=== PATIENT | male | born 1930 | race Caucasian/White ===

== ENCOUNTER 2017-08-26 20:21 | Inpatient (IN) | payer MEDICARE, OTHER ==
[~2017-08-26] VITALS: Ht 172.7 cm; Wt 75.5 kg
[2017-08-26] MEDS ORDERED: ASPIRIN 325 MG TABLET ONE (20:27)
[2017-08-26] MEDS ORDERED: NITROGLYCERIN 1GM/1 INCH PACKET TD ONE (20:41)
[2017-08-26 20:43] LABS: BASOPHILS % (AUTO) 1.4 % (0.0-5.0); EOSINOPHILS % (AUTO) 10.1 % (0.0-8.0); HEMATOCRIT 40.2 % (42-54); LYMPHOCYTES % (AUTO) 29.6 % (21.0-51.0); MEAN CORPUSCULAR HEMOGLOBIN 38.3 pg (27.0-33.0); MEAN CORPUSCULAR HGB CONC 35.4 g/dL (32.0-36.0); MEAN CORPUSCULAR VOLUME 108.1 fL (79-99); MONOCYTES % (AUTO) 8.7 % (3.0-13.0); NEUTROPHILS % (AUTO) 50.2 % (40.0-77.0); NUCLEATED RED BLOOD CELLS 0.1 % (0.0-0.19); PLATELET COUNT (AUTO) 189 K/uL (130-400); RED BLOOD CELL COUNT(AUTO) 3.72 MIL/uL (4.50-6.20); RED CELL DISTRIBUTION WIDTH 14.3 % (11.0-15.5); WHITE BLOOD COUNT (AUTO) 8.1 K/uL (4.8-10.8)
[2017-08-26 20:56] LABS: CREATININE 1.8 mg/dL (0.5-1.5); POTASSIUM 3.7 mmol/L (3.5-5.1)
[2017-08-26 20:59] LABS: INR 0.94 (0.85-1.15); PARTIAL THROMBOPLASTIN TIME 25.3 SEC (26.3-35.5); PROTHROMBIN TIME 9.9 SEC (9.6-11.6)
[2017-08-26 21:10] LABS: ALBUMIN 3.6 g/dL (3.5-5.0); BILIRUBIN,TOTAL 0.5 mg/dL (0.2-1.0); CREATINE KINASE MB 0.9 ng/mL (0.5-3.6); TOTAL PROTEIN, SERUM 7.9 g/dL (6.0-8.3)
[2017-08-26 21:35] LABS: B-TYPE NATRIURETIC PEPTIDE 30 pg/mL (0-100)
[2017-08-26] MEDS ORDERED: ACETAMINOPHEN 325 MG TAB PO PRN (23:30)
[2017-08-27 00:45] LABS: CREATINE KINASE MB 0.6 ng/mL (0.5-3.6); CREATINE KINASE, TOTAL 50 U/L (21-232); MYOGLOBIN 84 ng/mL (10-92); TROPONIN I < 0.04 ng/mL (0.00-0.06)
[2017-08-27 01:02] VITALS: BP 158/91
[2017-08-27] MEDS ORDERED: CILO50TA PO (05:33)
[2017-08-27] MEDS ORDERED: METO50 PO (05:33)
[2017-08-27] MEDS ORDERED: ASPI-1005 PO (05:33)
[2017-08-27] MEDS ORDERED: HYDR-2534 PO (05:33)
[2017-08-27] MEDS ORDERED: MECL12.585 PO (05:33)
[2017-08-27] MEDS ORDERED: ALLO300T2 PO (05:33)
[2017-08-27] MEDS ORDERED: ATOR10 PO (05:33)
[2017-08-27] MEDS ORDERED: LOSA50TA37 PO (05:33)
[2017-08-27] MEDS ORDERED: HYDR-4060 PO (05:33)
[2017-08-27] MEDS ORDERED: HYDROCODONE/ACETAMINOPHEN 5/325 MG TAB PO PRN (06:00)
[2017-08-27 06:13] LABS: HEMATOCRIT 37.7 % (42-54); MEAN CORPUSCULAR HEMOGLOBIN 37.5 pg (27.0-33.0); MEAN CORPUSCULAR HGB CONC 34.6 g/dL (32.0-36.0); MEAN CORPUSCULAR VOLUME 108.6 fL (79-99); PLATELET COUNT (AUTO) 177 K/uL (130-400); RED BLOOD CELL COUNT(AUTO) 3.47 MIL/uL (4.50-6.20); RED CELL DISTRIBUTION WIDTH 14.5 % (11.0-15.5); WHITE BLOOD COUNT (AUTO) 6.5 K/uL (4.8-10.8)
[2017-08-27 06:33] LABS: CREATININE 1.5 mg/dL (0.5-1.5); MAGNESIUM 1.6 mg/dL (1.80-2.40); POTASSIUM 3.7 mmol/L (3.5-5.1)
[2017-08-27 08:03] VITALS: BP 168/79
[2017-08-27] MEDS: LOSARTAN 50 MG TABLET PO SCH (08:31)
[2017-08-27] MEDS: METOPROLOL TARTRATE 50 MG TAB PO SCH ×2 (08:31→20:26)
[2017-08-27] MEDS: HYDROCHLOROTHIAZIDE 25 MG TABLET PO SCH (08:32)
[2017-08-27] MEDS: CILOSTAZOL 100 MG TAB PO SCH ×2 (08:32→20:26)
[2017-08-27] MEDS: ASPIRIN 81MG TAB.CHEW PO SCH (08:32)
[2017-08-27] MEDS: ENOXAPARIN SODIUM 30 MG/0.3 ML SQ SCH ×2 (08:33→20:25)
[2017-08-27] MEDS: ALLOPURINOL 300 MG TABLET PO SCH (08:34)
[2017-08-27] MEDS: MORPHINE SULFATE 4 MG/1ML SYG IV PRN ×2 (08:37→20:27)
[2017-08-27] MEDS ORDERED: MAGNESIUM 2GM PREMIX 50ML 50 ML IV SCH (10:15)
[2017-08-27 11:42] VITALS: BP 122/72
[2017-08-27] MEDS ORDERED: MAGNESIUM SULFATE 1 GM in SODIUM CHLORIDE 0.9% 50 ML IV SCH (12:45)
[2017-08-27] MEDS ORDERED: REGADENOSON 0.4 MG/5 ML PF SYG IVP SCH (15:15)
[2017-08-27 16:15] VITALS: BP 148/64
[2017-08-27 20:17] VITALS: BP 181/88
[2017-08-27] MEDS: ATORVASTATIN CALCIUM 40 MG TABLET PO SCH (20:26)
[2017-08-27] MEDS ORDERED: ATORVASTATIN CALCIUM 40 MG TABLET PO SCH (21:00)
[2017-08-27] MEDS ORDERED: ATORVASTATIN CALCIUM 10 MG TABLET PO SCH (21:00)
[2017-08-28] VITALS (7 sets, daily range): BP systolic 110–169; BP diastolic 50–91
[2017-08-28 04:12] LABS: HEMATOCRIT 40.1 % (42-54); MEAN CORPUSCULAR HEMOGLOBIN 36.9 pg (27.0-33.0); MEAN CORPUSCULAR HGB CONC 33.8 g/dL (32.0-36.0); MEAN CORPUSCULAR VOLUME 109.1 fL (79-99); PLATELET COUNT (AUTO) 176 K/uL (130-400); RED BLOOD CELL COUNT(AUTO) 3.67 MIL/uL (4.50-6.20); RED CELL DISTRIBUTION WIDTH 14.5 % (11.0-15.5)
[2017-08-28 04:22] LABS: CREATININE 1.4 mg/dL (0.5-1.5); POTASSIUM 3.6 mmol/L (3.5-5.1)
[2017-08-28] MEDS: MORPHINE SULFATE 4 MG/1ML SYG IV PRN ×2 (05:45→23:57)
[2017-08-28 08:35] LABS: BAND NEUTROPHILS % (MANUAL) 1 % (0-2); BASOPHILS % (MANUAL) 1 % (0-2); EOSINOPHILS % (MANUAL) 5 % (1-6); LYMPHOCYTES % (MANUAL) 31 % (22-44); MAN.DIFF COMMENT-IMPRESSION MANUAL DIFFERENTIAL; MONOCYTES % (MANUAL) 7 % (2-9); REACTIVE LYMPHOCYTES 8 % (0-0); SEGMENTED NEUTROPHILS % 47 % (40-70)
[2017-08-28 08:36] LABS: PLATELET MORPHOLOGY COMMENT ADEQUATE
[2017-08-28] MEDS: LOSARTAN 50 MG TABLET PO SCH (09:36)
[2017-08-28] MEDS: CILOSTAZOL 100 MG TAB PO SCH ×2 (09:36→21:59)
[2017-08-28] MEDS: ASPIRIN 81MG TAB.CHEW PO SCH ×2 (09:36→22:00)
[2017-08-28] MEDS: HYDROCHLOROTHIAZIDE 25 MG TABLET PO SCH (09:37)
[2017-08-28] MEDS: METOPROLOL TARTRATE 50 MG TAB PO SCH ×2 (09:37→22:01)
[2017-08-28] MEDS: ENOXAPARIN SODIUM 30 MG/0.3 ML SQ SCH ×2 (09:37→22:01)
[2017-08-28] MEDS: ALLOPURINOL 300 MG TABLET PO SCH ×2 (09:37→21:59)
[2017-08-28] MEDS: MECLIZINE HCL 12.5 MG TABLET PO PRN (09:50)
[2017-08-28] MEDS ORDERED: CYCLOBENZAPRINE HCL 10 MG TABLET PO PRN (11:45)
[2017-08-28] MEDS ORDERED: LOSARTAN 50 MG TABLET PO SCH ×2 (21:00)
[2017-08-28] MEDS: ATORVASTATIN CALCIUM 40 MG TABLET PO SCH (22:01)
[2017-08-29 03:36] VITALS: BP 118/63
[2017-08-29 03:36] LABS: HEMATOCRIT 38.9 % (42-54); MEAN CORPUSCULAR HEMOGLOBIN 37.2 pg (27.0-33.0); MEAN CORPUSCULAR HGB CONC 34.5 g/dL (32.0-36.0); MEAN CORPUSCULAR VOLUME 107.6 fL (79-99); PLATELET COUNT (AUTO) 179 K/uL (130-400); RED BLOOD CELL COUNT(AUTO) 3.61 MIL/uL (4.50-6.20); RED CELL DISTRIBUTION WIDTH 14.6 % (11.0-15.5); WHITE BLOOD COUNT (AUTO) 6.6 K/uL (4.8-10.8)
[2017-08-29 03:41] LABS: CREATININE 1.8 mg/dL (0.5-1.5); POTASSIUM 3.4 mmol/L (3.5-5.1)
[2017-08-29 03:48] LABS: BAND NEUTROPHILS % (MANUAL) 5 % (0-2); BASOPHILS % (MANUAL) 3 % (0-2); EOSINOPHILS % (MANUAL) 10 % (1-6); LYMPHOCYTES % (MANUAL) 31 % (22-44); MONOCYTES % (MANUAL) 9 % (2-9); SEGMENTED NEUTROPHILS % 42 % (40-70)
[2017-08-29 03:49] LABS: MAN.DIFF COMMENT-IMPRESSION MANUAL DIFFERENTIAL; PLATELET MORPHOLOGY COMMENT ADEQUATE
[2017-08-29 07:00] VITALS: BP 133/56
[2017-08-29] MEDS: METOPROLOL TARTRATE 50 MG TAB PO SCH ×2 (08:27→22:26)
[2017-08-29] MEDS: CILOSTAZOL 100 MG TAB PO SCH ×2 (08:27→22:25)
[2017-08-29] MEDS: ENOXAPARIN SODIUM 30 MG/0.3 ML SQ SCH ×2 (08:28→22:26)
[2017-08-29] MEDS ORDERED: HYDROCHLOROTHIAZIDE 25 MG TABLET PO SCH (09:00)
[2017-08-29] MEDS ORDERED: HYDROCODONE/ACETAMINOPHEN 5/325 MG TAB PO PRN (10:00)
[2017-08-29] MEDS: MECLIZINE HCL 12.5 MG TABLET PO PRN (10:23)
[2017-08-29 11:00] VITALS: BP 123/60
[2017-08-29] MEDS: MORPHINE SULFATE 4 MG/1ML SYG IV PRN ×2 (14:12→22:35)
[2017-08-29 16:00] VITALS: BP 102/56
[2017-08-29 19:30] VITALS: BP 126/56
[2017-08-29] MEDS: ALLOPURINOL 300 MG TABLET PO SCH (22:22)
[2017-08-29] MEDS: ASPIRIN 81MG TAB.CHEW PO SCH (22:26)
[2017-08-29] MEDS: ATORVASTATIN CALCIUM 40 MG TABLET PO SCH (22:28)
[2017-08-29 23:48] VITALS: BP 129/73
[2017-08-30 03:56] VITALS: BP 121/60
[2017-08-30 07:00] VITALS: BP 134/69
[2017-08-30] MEDS: ENOXAPARIN SODIUM 30 MG/0.3 ML SQ SCH (08:58)
[2017-08-30] MEDS: CILOSTAZOL 100 MG TAB PO SCH (08:58)
[2017-08-30] MEDS: METOPROLOL TARTRATE 50 MG TAB PO SCH (08:58)
== END 2017-08-30 10:40 | disposition home or self-care (01) | DRG 683 ==
LOC: EDH 20:21 → OBSVTOIN 22:42 → 2AH 22:42
PROVIDERS: ADMIT Family Medicine; ATTEND Family Medicine
DX: N17.9 Acute kidney failure, unspecified (principal); I24.9 Acute ischemic heart disease, unspecified; E83.42 Hypomagnesemia; Z95.1 Presence of aortocoronary bypass graft; E78.5 Hyperlipidemia, unspecified; I25.10 Atherosclerotic heart disease of native coronary artery without angina pectoris; N18.3 Chronic kidney disease, stage 3 (moderate); I12.9 Hypertensive chronic kidney disease with stage 1 through stage 4 chronic kidney disease, or unspecified chronic kidney disease; I25.2 Old myocardial infarction
CPT/HCPCS: 36415; 71045; 78452; 80048; 80053; 82550; 82553; 83735; 83874; 83880; 84484; 85025; 85027; 85610; 85730; 93005; 93017; 93306; 96374; A9500; J1650; J2270; J2785; J3475